=== PATIENT | male | born 1980 ===

== ENCOUNTER 2020-12-01 11:19 | Outpatient (REF) | payer SELFPAY ==
[2020-12-01 14:28] LABS: HGB 13.7 g/dL (13.5-17.5); MCHC 32.6 % (32.0-36.0); MCV 82.8 fL (80-95); MPV 9.9 fL (8.0-11.0); Platelet Count 401 10^3/uL (130-400); RBC 5.07 10^6/uL (4.36-5.78); RDW 12.4 % (11.8-14.1); RDW-SD 37.9 fL
[2020-12-01 14:49] LABS: ALT 54 U/L (16-63); AST 30 U/L (15-37); Albumin 3.5 g/dL (3.4-5.0); Alkaline Phosphatase 97 U/L (46-116); BUN 9 mg/dL (7-18); Bilirubin, Total 0.5 mg/dL (0.2-1.0); CREATININE 0.8 mg/dL (0.70-1.30); Calcium 9.1 mg/dL (8.5-10.1); Chloride 103 mmol/L (98-107); Glucose 95 mg/dL (74-106); Lipase 70 U/L (73-393); Potassium 3.7 mmol/L (3.5-5.1); Sodium 143 mmol/L (136-145); Total Protein 7.6 g/dL (6.4-8.2)
== END 2020-12-01 11:20 | disposition home or self-care (01) ==
LOC: NCHCN 11:19
PROVIDERS: Visit Provider Nurse Practitioner Family
DX: R19.7 Diarrhea, unspecified (principal); R11.2 Nausea with vomiting, unspecified
CPT/HCPCS: 80053; 83690; 85027